=== PATIENT | male | born 1965 | race Caucasian/White ===

== ENCOUNTER 2020-03-06 10:24 | Emergency (ER) | payer OTHER, BC, SELFPAY ==
--- NOTE | 2020-03-06 10:43 | XR_ITS ---
EXAMINATION: XR KNEE, RIGHT CLINICAL INFORMATION: Right knee pain. COMPARISON: None TECHNIQUE: Four views of the right knee. FINDINGS: No significant tricompartmental degenerative joint changes are seen. There is no acute fracture or dislocation. No significant joint effusion is seen. The soft tissues are unremarkable. XR/XR knee RT 4V IMPRESSION: No acute abnormality or significant degenerative changes.
[2020-03-06 10:47] VITALS: BP 133/91; PULSE 99; RESP 18; TEMP 36.6; O2SAT 95; BMI 28.7
--- NOTE | 2020-03-06 11:11 | ED.LOWEXIN ---
HPI - Extremity Injury (Lower) General Chief Complaint: Extremity Injury, Lower Stated Complaint: R KNEE INJ WORK RELATED Time Seen by Provider: 03/06/20 10:43 Source: patient Mode of arrival: ambulatory Limitations: no limitations History of Present Illness HPI Narrative: States he initially ?twisted the knee? having pain in the medial aspect of the knee at work this morning he subsequently given the knee between 2 boxes at work as well. Date of injury today 03/06/2020 Injury occurred just prior to arrival Patient presents ambulatory. Denies fall or any other injury. MD complaint: knee injury Onset (ago): minute(s) Injury: Right: knee Place: work Severity: mild Relieving factors: immobilization Exacerbating factors: movement Context: direct blow Other symptoms: none Related Data Previous Rx's Medication Instructions Recorded ibuprofen 800 mg PO Q8H PRN #15 tab 03/06/20 Allergies Allergy/AdvReac Type Severity Reaction Status Date / Time No Known Allergies Allergy Verified 03/06/20 10:50 Review of Systems Review of Systems: Constitutional: No Weight loss, No Fever, No Chills, No Night Sweats, No Fatigue, No Malaise ENT/Mouth: No Hearing loss, No Ear Pain, No Nasal Congestion Eyes: No Eye Pain Cardiovascular: No Chest Pain, No SOB, No Dyspnea on Exertion, No Orthopnea, No Edema, No Palpitations Respiratory: No Cough ea Gastrointestinal: No Nausea, No Vomiting, No Diarrhea, No Constipation, No abdominal Pain Genitourinary: no irregular bleeding, No Dysuria, No Urinary Frequency Musculoskeletal: No joint pain, No Myalgias, as noted in HPI Skin: No Skin Lesions, No rash Neuro: No Weakness, No Numbness, No Paresthesias, No Loss of Consciousness, No Dizziness, No Headache Psych: No Social Issues Heme/Lymph: No Bruising, No Bleeding,No Lymphadenopathy Endocrine: No Polyuria, No Polydipsia, No Temperature Intolerance Yes all other systems are reviewed and are negative [facility] Past Medical History Attestation statement: The following information was validated with the patient. Surgical History (Updated 03/06/20 @ 10:49 by Deysi Zuniga RN) History of surgery of liver Social History Social History Advance Directives: No Advance Directives Information Provided: Yes Physical Exam Vital Signs: Vital Signs: Last Vital Signs Temp 97.8 F 03/06/20 10:47 Pulse 99 03/06/20 10:47 Resp 18 03/06/20 10:47 BP 133/91 H 03/06/20 10:47 Pulse Ox 95 03/06/20 10:47 Body Mass Index 28.7 reviewed Const: General: cooperative and healthy appearing; No acute distress or intoxicated appearing Nutritional Appearance: average body habitus Orientation/consciousness: patient oriented x3 Chest: Chest palpation & inspection: normal inspection of the chest Resp: Effort & Inspection: normal respiratory effort Cardio: Jugular venous distension: no JVD GI: Inspection: Yes normal to inspection Percussion: Yes normal to percussion Auscultation: normal bowel sounds : General: Yes no CVA tenderness Back/Spine/Pelvis: Back: no CVA tenderness Skin: General skin exam: no rashes or lesions noted Neuro: General: patient oriented x3 Extrem: Other: Right knee slight temperature over the medial aspect of the knee otherwise no obvious injury or ecchymosis or swelling. Negative drawer test. Negative Esthela test. Patient ambulatory with steady gait. General: Yes normal to inspection Course Course Course Narrative: AP strain/contusion type injury to the right knee over the medial aspect. X-ray unremarkable. No neurovascular injury. No sinus symptoms compartment. Given Guilherme wrap given the injury occurred at work will in follow-up work connection. Stable for discharge. Discharge Plan Discharge Clinical Impression: Right knee sprain Qualifiers: Encounter type: initial encounter Involved ligament of knee: medial collateral ligament Qualified Code(s): S83.411A - Sprain of medial collateral ligament of right knee, initial encounter Patient Disposition: Home, Self-Care Instructions: Knee Sprain (ED) Prescriptions: New ibuprofen 800 mg tablet 800 mg PO Q8H PRN (Reason: pain) Qty: 15 RF: 0 Referrals: Physician,Unknown [Primary Care Provider] - 3 days (Work connection) Stand Alone Forms: Work/School Release Discharge Date/Time: 03/06/20 11:31
== END 2020-03-06 11:31 | disposition home or self-care (01) ==
PROVIDERS: Emergency Provider Internal Medicine
DX: S83.411A Sprain of medial collateral ligament of right knee, initial encounter (principal); M25.561 Pain in right knee; X50.1XXA Overexertion from prolonged static or awkward postures, initial encounter; Y93.01 Activity, walking, marching and hiking; Y92.9 Unspecified place or not applicable; Y99.9 Unspecified external cause status
CPT/HCPCS: 73564; 99283

== ENCOUNTER → 2021-08-17 13:33 | Outpatient (BNVA) | payer OTHER, SELFPAY | PROVIDERS: Visit Provider Internal Medicine | DX: S66.812A Strain of other specified muscles, fascia and tendons at wrist and hand level, left hand, initial encounter (principal); X50.0XXA Overexertion from strenuous movement or load, initial encounter | CPT/HCPCS: 73130; 99202 ==

== ENCOUNTER → 2021-08-31 07:56 | Outpatient (BNVA) | payer OTHER, SELFPAY | PROVIDERS: Visit Provider Internal Medicine | DX: S54.1 Injury of median nerve at forearm level (principal); X58.XXXD Exposure to other specified factors, subsequent encounter | CPT/HCPCS: 99213 ==

== ENCOUNTER → 2021-09-14 12:45 | Outpatient (BNVA) | payer OTHER, SELFPAY | PROVIDERS: Visit Provider Internal Medicine | DX: S64.11XD Injury of median nerve at wrist and hand level of right arm, subsequent encounter (principal); X58.XXXD Exposure to other specified factors, subsequent encounter | CPT/HCPCS: 99213 ==

== ENCOUNTER 2021-09-15 08:24 | Outpatient (REF) | payer OTHER, SELFPAY ==
--- NOTE | ~2021-09-15 | XR_ITS ---
EXAMINATION: XR HAND, RIGHT CLINICAL INFORMATION: Right hand COMPARISON: 08/17/2021 TECHNIQUE: PA, lateral, and oblique views of the right hand. FINDINGS: The bones and soft tissues are normal. No fracture. Alignment is anatomic. Seen on the previous examination ossicles adjacent to the ulnar styloid seen again. Joint spaces are maintained. No erosions or soft tissue calcifications. XR/XR hand RT min 3V IMPRESSION: No fracture seen. Accessory ossicles adjacent to the distal ulna
== END 2021-09-15 08:25 | disposition home or self-care (01) ==
LOC: HO.HOSX 08:24
PROVIDERS: Visit Provider Orthopaedic Surgery
DX: M79.641 Pain in right hand (principal); R20.0 Anesthesia of skin; R20.2 Paresthesia of skin
CPT/HCPCS: 73130; 99202

== ENCOUNTER → 2021-09-28 13:15 | Outpatient (BNVA) | payer OTHER, SELFPAY | PROVIDERS: PCP Internal Medicine; Visit Provider Internal Medicine | DX: S64.11XD Injury of median nerve at wrist and hand level of right arm, subsequent encounter (principal); X58.XXXD Exposure to other specified factors, subsequent encounter | CPT/HCPCS: 99213 ==